=== PATIENT | female | born 1965 | race Caucasian/White ===

== ENCOUNTER 2017-05-27 09:29 | Day surgery (SDC) | payer MEDICAID ==
[2017-05-27] MEDS ORDERED: Cyanocobalamin (Vitamin B12) 1,000 MCG/ML SDV IM ONE (10:00)
[2017-05-27] MEDS ORDERED: Lactated Ringers 1,000 ML IV SCH (10:10)
[2017-05-27] MEDS ORDERED: Glycopyrrolate 0.2 MG/ML 2 ML SDV IVPUSH ONE (10:30)
[2017-05-27] MEDS ORDERED: MVI, Adult with Vitamin K 10 ML, Thiamine 200 MG, Chromium/Copper/Mang/Selen/Zn 1 ML in... IV ONE ×4 (10:30)
[2017-05-27] MEDS ORDERED: fentaNYL 100 MCG/2 ML SDV ONE (11:42)
[2017-05-27] MEDS ORDERED: Midazolam 1 MG/ML 2 ML SDV ONE (11:42)
[2017-05-27] MEDS ORDERED: Propofol 200 MG/20 ML SDV ONE (11:42)
[2017-05-27] MEDS: Iohexol 300 MG/ML 30 ML Bottle PO ONE ×2 (12:45→14:18)
[2017-05-27] MEDS ORDERED: Iopamidol 612 MG/ML 150 ML Bottle IV PRN (13:06)
[2017-05-27] MEDS ORDERED: Sodium Chloride 0.9% 80 ML IV SCH (13:15)
[2017-05-27 14:16] VITALS: BP 114/74
--- NOTE | 2017-05-27 14:30 | CT ---
Abdomen pelvis CT. History: Upper abdominal pain. Status post Anais-en-Y. Technique: IV and oral contrast were administered followed by axial imaging from the lung bases exten ding through the abdomen and pelvis. Coronal images were reconstructed. Total DLP: 676. Comparison: None Findings: Limited evaluation of lower lung parker demonstrates no abnormalities. There is a peripherally nodular enhancing lesion of the dome of the right lobe liver consistent with a hemangioma. The liver is otherwise unremarkable. The gallbladder is surgically absent. There is no biliary ductal dilatation. The pancreas and adjacent tissues are unremarkable. The spleen is normal i n size. The adrenal glands are symmetric. The kidneys demonstrate symmetric excretion of contrast. There are postoperative findings consistent with a Anais-en-Y gastric bypass. The gastric pouch as wel l as the pauma stomach are nondistended. The Anais limb is nondistended. Contrast is demonstrated dis shelbie to the jejunal jejunal anastomosis. There is no large or small bowel distention. There is no free air or free fluid. There is no evidence of internal hernia or volvulus. Impression: 1. Status post Anais-en-Y gastric bypass. There is no evidence for complication. 2. Liver hemangioma. 3. No acute findings of the abdomen or pelvis.
--- NOTE | 2017-05-30 10:25 | OR ---
DATE OF PROCEDURE: 05/27/2017 PREOPERATIVE DIAGNOSIS: Epigastric pain status post Anais-en-Y gastric bypass. POSTOPERATIVE DIAGNOSIS: Normal upper GI endoscopic examination, status post Anais-en-Y gastric bypass. OPERATIVE PROCEDURE: Upper GI endoscopy with biopsies of gastric pouch for CLOtest. ANESTHESIA: IV sedation. INDICATION FOR PROCEDURE: This is a 51-year-old female status post Anais-en-Y gastric bypass. This was a band conversion to Anais-en-Y gastric bypass in 2009. She has been plagued with some persistent epigastric pain and seems to be worse after eating. She presently has been on ranitidine and Carafate. Plan is to proceed with an upper GI endoscopy with biopsies and/or dilation as indicated. Potential risk including bleeding and perforation were discussed and the patient wishes to proceed. DETAILS OF PROCEDURE: The patient was taken to the operating room and placed in the left lateral decubitus position. IV sedation was administered after which the upper GI endoscope was passed orally through the length of the esophagus into the gastric pouch, from there through the gastrojejunostomy roughly 20 cm into the Anais limb. Overall exam was entirely normal. There was no inflammation in the esophagus, EG junction area, or gastric pouch. The gastrojejunostomy was widely patent with no evidence of inflammation or marginal ulcer and visualized portion of the Anais limb was unremarkable. At this point, biopsies were obtained from the gastric pouch and sent for CLOtest for H. pylori. Minimal bleeding from the biopsy site was seen and the procedure was then concluded. The patient has some difficult logistics coming down from the [facility] for followup and given the lack of any significant findings on today's upper endoscopic exam, CT scan of the abdomen was obtained. This likewise was normal. The patient may be suffering from some gastritis or duodenitis with possible ulcer disease in those areas in the bypassed portion of the stomach or duodenum. We will continue with the present medications as they certainly appear to be efficacious with regard to the gastric bypass anatomy, and the patient will be set up to see Jeannette Avina in 1 month. If she continues to have ongoing epigastric pain, one option would be to proceed with diagnostic laparoscopy with an endoscopic examination of the bypassed stomach and duodenum and surgical treatment of that area based on the operative findings. Romulo Ortega MD /[id number]
== END 2017-05-27 15:17 | disposition home or self-care (01) ==
LOC: JP.SDS 09:29
PROVIDERS: ATTEND Surgery
DX: R10.13 Epigastric pain (principal); I10 Essential (primary) hypertension; E78.5 Hyperlipidemia, unspecified; E03.9 Hypothyroidism, unspecified; K21.9 Gastro-esophageal reflux disease without esophagitis; Z98.84 Bariatric surgery status; Z88.8 Allergy status to other drugs, medicaments and biological substances; Z91.030 Bee allergy status
CPT/HCPCS: 43239; 74177; 87081; J2250; J2704; J3010; J3411; J3420; J7030; J7120; Q9965; J3490